=== PATIENT | female | born 1935 | race Two or more races ===

== ENCOUNTER 2017-08-13 10:39 | Outpatient (CLI) | payer OTHER | END 2017-08-13 10:47 | disposition home or self-care (01) | LOC: LAB 10:39 | DX: N30.00 Acute cystitis without hematuria (principal) ==

== ENCOUNTER → 2017-08-17 12:00 | Outpatient (CLI) | payer OTHER | END | disposition home or self-care (01) | LOC: LAB 12:00 | DX: D64.89 Other specified anemias (principal); I10 Essential (primary) hypertension; N39.0 Urinary tract infection, site not specified ==

== ENCOUNTER 2017-08-17 13:01 | Outpatient (CLI) | payer OTHER | END 2017-08-17 14:00 | disposition home or self-care (01) | LOC: NUCLEAR 13:01 | DX: M81.0 Age-related osteoporosis without current pathological fracture (principal) ==

== ENCOUNTER 2017-08-27 08:30 | Outpatient (CLI) | payer OTHER ==
[~2017-08-27] VITALS: Ht 152.4 cm; Wt 52.2 kg
== END 2017-08-27 08:45 | disposition home or self-care (01) ==
LOC: OFIC 805 08:30
DX: H61.23 Impacted cerumen, bilateral (principal); H60.8X3 Other otitis externa, bilateral

== ENCOUNTER 2017-09-10 09:59 | Outpatient (CLI) | payer OTHER ==
[~2017-09-10] VITALS: Ht 152.4 cm; Wt 52.2 kg
== END 2017-09-10 10:15 | disposition home or self-care (01) ==
LOC: OFIC 805 09:59
DX: H61.23 Impacted cerumen, bilateral (principal); H60.8X3 Other otitis externa, bilateral

== ENCOUNTER → 2018-02-15 | Outpatient (CLI) | payer OTHER | END | disposition home or self-care (01) | LOC: LAB 11:10 | DX: I10 Essential (primary) hypertension (principal); E78.2 Mixed hyperlipidemia; N39.0 Urinary tract infection, site not specified ==

== ENCOUNTER 2018-09-09 10:22 | Outpatient (CLI) | payer OTHER | END 2018-09-09 15:00 | disposition home or self-care (01) | LOC: LAB 10:22 | DX: I10 Essential (primary) hypertension (principal); E11.9 Type 2 diabetes mellitus without complications; E78.00 Pure hypercholesterolemia, unspecified; E03.8 Other specified hypothyroidism; N39.0 Urinary tract infection, site not specified ==

== ENCOUNTER 2018-12-07 08:50 | Outpatient (CLI) | payer OTHER | END 2018-12-07 08:56 | disposition home or self-care (01) | LOC: LAB 08:50 | DX: N39.0 Urinary tract infection, site not specified (principal); I10 Essential (primary) hypertension; D64.89 Other specified anemias ==

== ENCOUNTER 2019-03-09 10:05 | Outpatient (CLI) | payer OTHER | END 2019-03-09 10:15 | disposition home or self-care (01) | LOC: LAB 10:05 | DX: E03.8 Other specified hypothyroidism (principal); E78.00 Pure hypercholesterolemia, unspecified; I10 Essential (primary) hypertension ==

== ENCOUNTER 2019-05-17 10:08 | Outpatient (CLI) | payer OTHER | END 2019-05-17 10:20 | disposition home or self-care (01) | LOC: LAB 10:08 | DX: E03.8 Other specified hypothyroidism (principal); D63.8 Anemia in other chronic diseases classified elsewhere; N30.90 Cystitis, unspecified without hematuria; E78.00 Pure hypercholesterolemia, unspecified; R73.09 Other abnormal glucose; B96.29 Other Escherichia coli [E. coli] as the cause of diseases classified elsewhere; Z12.11 Encounter for screening for malignant neoplasm of colon; K92.1 Melena ==

== ENCOUNTER 2019-05-17 10:55 | Outpatient (CLI) | payer OTHER | END 2019-05-17 11:14 | disposition home or self-care (01) | LOC: MAMO-SONO 10:55 | DX: Z12.31 Encounter for screening mammogram for malignant neoplasm of breast (principal); Z87.898 Personal history of other specified conditions; N63.10 Unspecified lump in the right breast, unspecified quadrant; N63.20 Unspecified lump in the left breast, unspecified quadrant; N64.4 Mastodynia; N60.11 Diffuse cystic mastopathy of right breast ==

== ENCOUNTER → 2019-05-19 | Outpatient (CLI) | payer OTHER | END | disposition home or self-care (01) | LOC: LAB 12:34 | DX: E03.8 Other specified hypothyroidism (principal); D63.8 Anemia in other chronic diseases classified elsewhere; N30.90 Cystitis, unspecified without hematuria; E78.00 Pure hypercholesterolemia, unspecified; R73.09 Other abnormal glucose; K92.1 Melena; Z12.11 Encounter for screening for malignant neoplasm of colon ==

== ENCOUNTER 2019-05-25 10:17 | Outpatient (CLI) | payer OTHER | END 2019-05-25 10:29 | disposition home or self-care (01) | LOC: LAB 10:17 | DX: D53.8 Other specified nutritional anemias (principal); D70.8 Other neutropenia; D69.49 Other primary thrombocytopenia; R74.0 Nonspecific elevation of levels of transaminase and lactic acid dehydrogenase [LDH]; C18.0 Malignant neoplasm of cecum; C22.0 Liver cell carcinoma; M32.10 Systemic lupus erythematosus, organ or system involvement unspecified ==

== ENCOUNTER 2019-05-25 11:17 | Outpatient (CLI) | payer OTHER | END 2019-05-25 11:26 | disposition home or self-care (01) | LOC: SONOGRAMA 11:17 | DX: R74.0 Nonspecific elevation of levels of transaminase and lactic acid dehydrogenase [LDH] (principal); D70.8 Other neutropenia ==

== ENCOUNTER → 2019-06-07 | Outpatient (CLI) | payer OTHER ==
[~2019-06-07] VITALS: Ht 152.4 cm; Wt 52.2 kg
[~2019-06-07] MED LIST: CLARITIN10 MG PO; DERMOTIC20 ML OTIC; FLONASE16 GM NASAL
== END | disposition home or self-care (01) ==
LOC: OFIC 805 08:05
DX: J31.0 Chronic rhinitis (principal); R05 Cough; L29.8 Other pruritus; H61.22 Impacted cerumen, left ear

== ENCOUNTER 2019-06-21 10:21 | Outpatient (CLI) | payer OTHER | END 2019-06-21 10:47 | disposition home or self-care (01) | LOC: LAB 10:21 | DX: D70.8 Other neutropenia (principal); D53.8 Other specified nutritional anemias; R74.0 Nonspecific elevation of levels of transaminase and lactic acid dehydrogenase [LDH]; M05.80 Other rheumatoid arthritis with rheumatoid factor of unspecified site; M32.8 Other forms of systemic lupus erythematosus; C18.0 Malignant neoplasm of cecum; C22.0 Liver cell carcinoma ==

== ENCOUNTER → 2019-06-21 | Outpatient (CLI) | payer OTHER | END | disposition home or self-care (01) | LOC: SONOGRAMA 11:25 | DX: D70.8 Other neutropenia (principal); R74.0 Nonspecific elevation of levels of transaminase and lactic acid dehydrogenase [LDH]; D53.8 Other specified nutritional anemias ==

== ENCOUNTER → 2019-07-11 12:01 | Outpatient (CLI) | payer OTHER | END | disposition home or self-care (01) | LOC: LAB 12:01 | DX: D59.1 Other autoimmune hemolytic anemias (principal); D69.1 Qualitative platelet defects; D80.1 Nonfamilial hypogammaglobulinemia; E78.00 Pure hypercholesterolemia, unspecified; R74.0 Nonspecific elevation of levels of transaminase and lactic acid dehydrogenase [LDH]; M32.8 Other forms of systemic lupus erythematosus; K74.3 Primary biliary cirrhosis ==

== ENCOUNTER → 2019-07-17 | Outpatient (CLI) | payer OTHER | END | disposition home or self-care (01) | LOC: MRI 07:45 | DX: K74.3 Primary biliary cirrhosis (principal) | CPT/HCPCS: 74181 ==

== ENCOUNTER 2020-08-21 08:39 | Outpatient (CLI) | payer OTHER | END 2020-08-21 08:48 | disposition home or self-care (01) | LOC: LAB 08:39 | DX: D64.89 Other specified anemias (principal); I10 Essential (primary) hypertension; E55.9 Vitamin D deficiency, unspecified; E78.00 Pure hypercholesterolemia, unspecified; E03.8 Other specified hypothyroidism; N39.0 Urinary tract infection, site not specified ==

== ENCOUNTER → 2020-10-10 10:22 | Outpatient (CLI) | payer OTHER | END | disposition home or self-care (01) | LOC: LAB 10:22 | DX: N39.0 Urinary tract infection, site not specified (principal); I10 Essential (primary) hypertension; D37.8 Neoplasm of uncertain behavior of other specified digestive organs; C78.7 Secondary malignant neoplasm of liver and intrahepatic bile duct; C18.8 Malignant neoplasm of overlapping sites of colon ==

== ENCOUNTER 2020-11-29 10:21 | Outpatient (CLI) | payer OTHER | END 2020-11-29 15:00 | disposition home or self-care (01) | LOC: LAB 10:21 | PROVIDERS: ATTEND Radiology Diagnostic Radiology | DX: R19.09 Other intra-abdominal and pelvic swelling, mass and lump (principal) ==

== ENCOUNTER 2020-12-04 08:10 | Outpatient (CLI) | payer OTHER | END 2020-12-04 08:23 | disposition home or self-care (01) | LOC: TOM 08:10 | DX: R19.09 Other intra-abdominal and pelvic swelling, mass and lump (principal) | CPT/HCPCS: 74177; Q9965 ==

== ENCOUNTER 2021-01-01 07:58 | Outpatient (CLI) | payer OTHER | END 2021-01-01 08:11 | disposition home or self-care (01) | LOC: MRI 07:58 | PROVIDERS: ATTEND Internal Medicine Gastroenterology | DX: R74.8 Abnormal levels of other serum enzymes (principal); R97.8 Other abnormal tumor markers | CPT/HCPCS: 74181 ==

== ENCOUNTER → 2021-01-20 06:33 | Outpatient (CLI) | payer OTHER | END | disposition home or self-care (01) | LOC: LAB 06:33 | PROVIDERS: ATTEND Internal Medicine Gastroenterology | DX: E03.9 Hypothyroidism, unspecified (principal); E78.5 Hyperlipidemia, unspecified; R10.84 Generalized abdominal pain; R97.8 Other abnormal tumor markers; R12 Heartburn; R74.8 Abnormal levels of other serum enzymes; R63.4 Abnormal weight loss ==

== ENCOUNTER 2021-05-01 09:58 | Outpatient (CLI) | payer OTHER | END 2021-05-01 10:05 | disposition home or self-care (01) | LOC: LAB 09:58 | DX: I10 Essential (primary) hypertension (principal); E55.9 Vitamin D deficiency, unspecified; D64.89 Other specified anemias ==

== ENCOUNTER 2021-09-18 09:37 | Outpatient (CLI) | payer OTHER | END 2021-09-18 09:38 | disposition home or self-care (01) | LOC: LAB 09:37 | DX: D64.9 Anemia, unspecified (principal); I10 Essential (primary) hypertension; E78.00 Pure hypercholesterolemia, unspecified; N39.0 Urinary tract infection, site not specified ==

== ENCOUNTER 2021-10-03 09:49 | Outpatient (CLI) | payer OTHER | END 2021-10-03 09:52 | disposition home or self-care (01) | LOC: LAB 09:49 | PROVIDERS: ATTEND Internal Medicine Gastroenterology | DX: R97.8 Other abnormal tumor markers (principal); R12 Heartburn; R63.4 Abnormal weight loss; R47.89 Other speech disturbances ==

== ENCOUNTER 2021-10-03 10:36 | Outpatient (CLI) | payer OTHER | END 2021-10-03 11:00 | disposition home or self-care (01) | LOC: SONOGRAMA 10:36 | PROVIDERS: ATTEND Internal Medicine Gastroenterology | DX: R10.84 Generalized abdominal pain (principal) ==

== ENCOUNTER 2021-11-19 08:00 | Outpatient (CLI) | payer OTHER | END 2021-11-19 08:30 | disposition home or self-care (01) | LOC: PPH VACUNA 08:00 | PROVIDERS: ATTEND Emergency Medicine Pediatric Emergency Medicine | DX: Z23 Encounter for immunization (principal) ==

== ENCOUNTER 2021-12-10 09:42 | Outpatient (CLI) | payer OTHER | END 2021-12-10 09:48 | disposition home or self-care (01) | LOC: LAB 09:42 | DX: D64.9 Anemia, unspecified (principal); I10 Essential (primary) hypertension; D09.8 Carcinoma in situ of other specified sites; N39.0 Urinary tract infection, site not specified ==

== ENCOUNTER 2022-03-18 11:58 | Outpatient (CLI) | payer OTHER | END 2022-03-18 12:10 | disposition home or self-care (01) | LOC: TOM 11:58 | PROVIDERS: ATTEND Internal Medicine Gastroenterology | DX: R97.8 Other abnormal tumor markers (principal); R74.8 Abnormal levels of other serum enzymes; R63.4 Abnormal weight loss ==

== ENCOUNTER 2022-04-02 10:34 | Outpatient (CLI) | payer OTHER | END 2022-04-02 10:58 | disposition home or self-care (01) | LOC: LAB 10:34 | PROVIDERS: ATTEND Radiology Diagnostic Radiology | DX: R97.8 Other abnormal tumor markers (principal) ==